=== PATIENT | female | born 1965 | race Caucasian/White ===

== ENCOUNTER → 2023-08-20 19:38 | Outpatient (REF) | payer OTHER, SELFPAY | LOC: WDC 19:38 | PROVIDERS: ATTENDING PHYSICIAN Obstetrics & Gynecology Gynecology; FAMILY PHYSICIAN Internal Medicine | DX: Z12.31 Encounter for screening mammogram for malignant neoplasm of breast (principal) | CPT/HCPCS: 77063; 77067 ==

== ENCOUNTER → 2024-04-28 07:56 | Outpatient (REF) | payer OTHER, SELFPAY | LOC: RCS 07:56 | PROVIDERS: ATTENDING PHYSICIAN Internal Medicine | DX: R00.2 Palpitations (principal) | CPT/HCPCS: 93225; 93226 ==

== ENCOUNTER → 2024-05-19 17:15 | Outpatient (REF) | payer OTHER, SELFPAY | LOC: RAD 17:15 | PROVIDERS: ATTENDING PHYSICIAN Internal Medicine | DX: M25.561 Pain in right knee (principal); G89.29 Other chronic pain | CPT/HCPCS: 73564 ==

== ENCOUNTER 2024-07-05 13:25 | Outpatient (RCR) | payer OTHER, SELFPAY | END 2024-07-06 07:35 | disposition home or self-care (01) | LOC: RPT 13:25 | PROVIDERS: ATTENDING PHYSICIAN Orthopaedic Surgery; FAMILY PHYSICIAN Internal Medicine | DX: M25.561 Pain in right knee (principal); M62.81 Muscle weakness (generalized); R26.89 Other abnormalities of gait and mobility | CPT/HCPCS: 97110; 97161; 97535 ==

== ENCOUNTER → 2024-07-29 16:48 | Outpatient (REF) | payer OTHER, SELFPAY | LOC: RAD 16:48 | PROVIDERS: ATTENDING PHYSICIAN Nurse Practitioner Family; FAMILY PHYSICIAN Internal Medicine | DX: R05.1 Acute cough (principal) | CPT/HCPCS: 71046 ==

== ENCOUNTER → 2024-09-30 17:25 | Outpatient (REF) | payer OTHER, SELFPAY | LOC: WDC 17:25 | PROVIDERS: ATTENDING PHYSICIAN Obstetrics & Gynecology Gynecology; FAMILY PHYSICIAN Internal Medicine | DX: Z12.31 Encounter for screening mammogram for malignant neoplasm of breast (principal) | CPT/HCPCS: 77063; 77067 ==

== ENCOUNTER 2024-10-14 15:57 | Outpatient (RCR) | payer OTHER, SELFPAY | END 2024-10-14 23:59 | disposition home or self-care (01) | LOC: RPT 15:57 | PROVIDERS: ATTENDING PHYSICIAN Physician Assistant Surgical; FAMILY PHYSICIAN Internal Medicine | DX: M17.11 Unilateral primary osteoarthritis, right knee; Z47.1 Aftercare following joint replacement surgery; Z73.6 Limitation of activities due to disability; R26.89 Other abnormalities of gait and mobility; M25.561 Pain in right knee; M62.81 Muscle weakness (generalized); Z96.651 Presence of right artificial knee joint | CPT/HCPCS: 97110; 97112; 97161 ==